=== PATIENT | female | born 1990 | race Asian ===

== ENCOUNTER 2023-10-25 14:02 | Emergency (ER) | payer MEDICAID ==
[2023-10-25 16:21] LABS: BASOPHILS ABSOLUTE AUTO 0.02 K/uL (0.00-0.10); BASOPHILS PERCENT AUTO 0.1 % (0.1-1.3); EOSINOPHILS ABSOLUTE AUTO 0.04 K/uL (0.00-0.40); EOSINOPHILS PERCENT AUTO 0.3 % (0.0-5.4); HEMOGLOBIN 12.3 g/dL (11.2-15.5); IMMATURE GRAN ABSOLUTE AUTO 0.06 K/uL (0.00-0.23); IMMATURE GRAN PERCENT AUTO 0.4 % (0.0-0.7); LYMPHOCYTES ABSOLUTE AUTO 2.98 K/uL (0.8-3.3); LYMPHOCYTES PERCENT AUTO 20.5 % (11.4-47.7); MEAN CORPUSCULAR HEMOGLOBIN 30.4 pg (31.6-35.5); MEAN CORPUSCULAR HGB CONC 34.2 g/dL (31.6-35.5); MEAN CORPUSCULAR VOLUME 89.1 fL (81.4-99.0); MONOCYTES ABSOLUTE AUTO 0.73 K/uL (0.20-0.90); NEUTROPHILS ABSOLUTE AUTO 10.74 K/uL (1.0-7.6); NEUTROPHILS PERCENT AUTO 73.7 % (40.0-78.1); PLATELET COUNT,PLT 277 K/uL (130-375); RED BLOOD CELL COUNT 4.04 M/uL (3.77-5.24); WHITE BLOOD CELL COUNT,WBC 14.6 K/uL (3.2-11.0)
[2023-10-25 16:21] LABS: APPEARANCE,URINE SLIGHTLY CLOUDY (CLEAR); BILIRUBIN,URINE NEGATIVE (NEGATIVE); COLOR,URINE YELLOW (YELLOW); GLUCOSE,URINE NEGATIVE (NEGATIVE); KETONES,URINE 40 mg/dL (NEGATIVE); LEUKOCYTE ESTERASE,URINE NEGATIVE (NEGATIVE); NITRITE,URINE NEGATIVE (NEGATIVE); OCCULT BLOOD,URINE NEGATIVE (NEGATIVE); PROTEIN,URINE NEGATIVE (NEGATIVE); UROBILINOGEN,URINE 0.2 EU/dL (0.2-1.0)
[2023-10-25 16:28] LABS: AMORPHOUS SEDIMENT,URINE MODERATE; BACTERIA,URINE RARE; EPITHELIAL CELLS,URINE FEW; MUCUS,URINE NOT SEEN; RBC,URINE 0-5 (0-5); WBC,URINE 0-5 (0-5)
[2023-10-25 16:37] LABS: ANION GAP 11.5 mmol/L (5.0-14.0); CALCIUM 9.8 mg/dL (8.5-10.1); CREATININE 0.6 mg/dL (0.6-1.0); EST CRCL DRUG DOSING (CG) 107.45 mL/min; POTASSIUM,K 3.5 mmol/L (3.6-5.2)
[2023-10-25] MEDS: Alum Hydrox/Mag Hydrox/Simeth 15 ML, Lidocaine 2% 15 ML PO ONE (16:56)
[2023-10-25] MEDS ORDERED: Pantoprazole 40 MG Tab.CR PO SCH (18:15)
== END 2023-10-25 18:19 | disposition home or self-care (01) ==
LOC: JP.ED 14:02
DX: O99.891 Other specified diseases and conditions complicating pregnancy (principal); R10.13 Epigastric pain; Z79.82 Long term (current) use of aspirin; Z3A.24 24 weeks gestation of pregnancy; Z79.899 Other long term (current) drug therapy
CPT/HCPCS: 36415; 80048; 81001; 84484; 85025; 99284; A9270

== ENCOUNTER 2023-11-02 20:10 | Emergency (ER) | payer MEDICAID ==
[2023-11-02] MEDS: Acetaminophen 500 MG Tab PO ONE (22:26)
== END 2023-11-02 23:11 | disposition home or self-care (01) ==
LOC: JP.ED 20:10
DX: K80.20 Calculus of gallbladder without cholecystitis without obstruction (principal); Z79.899 Other long term (current) drug therapy
CPT/HCPCS: 99283; A9270

== ENCOUNTER 2024-02-04 23:19 | Emergency (ER) | payer MEDICAID ==
[2024-02-05 00:31] LABS: BASOPHILS ABSOLUTE AUTO 0.04 K/uL (0.00-0.10); BASOPHILS PERCENT AUTO 0.3 % (0.1-1.3); EOSINOPHILS PERCENT AUTO 2.7 % (0.0-5.4); HEMATOCRIT 18.2 % (34.3-46.0); IMMATURE GRAN ABSOLUTE AUTO 0.35 K/uL (0.00-0.23); IMMATURE GRAN PERCENT AUTO 2.4 % (0.0-0.7); LYMPHOCYTES ABSOLUTE AUTO 3.74 K/uL (0.8-3.3); LYMPHOCYTES PERCENT AUTO 25.4 % (11.4-47.7); MEAN CORPUSCULAR HEMOGLOBIN 31.3 pg (31.6-35.5); MEAN CORPUSCULAR HGB CONC 33.5 g/dL (31.6-35.5); MEAN CORPUSCULAR VOLUME 93.3 fL (81.4-99.0); MONOCYTES ABSOLUTE AUTO 0.91 K/uL (0.20-0.90); MONOCYTES PERCENT AUTO 6.2 % (3.3-12.6); NEUTROPHILS ABSOLUTE AUTO 9.31 K/uL (1.0-7.6); PLATELET COUNT,PLT 292 K/uL (130-375); RED BLOOD CELL COUNT 1.95 M/uL (3.77-5.24); WHITE BLOOD CELL COUNT,WBC 14.8 K/uL (3.2-11.0)
[2024-02-05 00:33] LABS: HEMOGLOBIN 6.1 g/dL (11.2-15.5)
== END 2024-02-05 01:25 | disposition home or self-care (01) ==
LOC: JP.ED 23:19
DX: O90.0 Disruption of cesarean delivery wound (principal); O90.81 Anemia of the puerperium; Z90.49 Acquired absence of other specified parts of digestive tract; Z79.82 Long term (current) use of aspirin
CPT/HCPCS: 36415; 85025; 99283; 99284